=== PATIENT | male | born 1970 | race Caucasian/White ===

== ENCOUNTER 2024-08-20 08:34 | Outpatient (AMB) | payer OTHER, SELFPAY ==
--- NOTE | 2024-08-20 08:36 | MHC.PC.OV ---
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 Intake Note: patient here for new patient visit c/o possible hernia Controls Designer Required: No Allergies No Known Allergies Allergy (Verified 08/20/24 08:55) Medication List - Last Reviewed 08/20/24 by Fernanda Mccarthy MA tamsulosin (Flomax) 0.4 mg PO DAILY Tobacco use date assessed: 08/20/24 Dental Screening Dental Screen Date: 08/20/24 Did you have a dental visit in the last 12 months?: Yes Did you have a dental problem in the last 6 months where you did not have access to dental care?: No Was dental information given to patient?: Patient has dentist HPI HPI Comments History of Present Illness Details 54-year-old male [facility]. Prior PCP? - Dr. Tootie Ny, [facility] Last office visit/CPE/labs - 02/2024 Acute issue(s) - BPH: He is on tamsulosin 0.4 mg daily. He was followed by [facility] until he was advised 2 years ago that follow up was no longer necessary. - He notes that he has been noticing a small painless bulge around his umbilicus with coughing, sneezing, and having a bowel movement for the past 6 months. He thinks he may have umbilical hernia. Past Medical History - Hyperlipidemia, acid reflux, arthritis multiple joints, BPH, sinusitis Surgical History - Right and left total knee replacement, arthroscopy of left knee, left hip replacement Family History - Dad: Hyperlipidemia Social History - Nonsmoker. Does not vape. Drinks 4-5 beers/win 2-3 days weekly. Denies recreational drug use - Has been making healthy dietary choices. Exercises routinely. Generally sleep well Health maintenance - Last eye exam was 02/2024 at [facility] in [facility]. He will sign a release for his PCP to obtain his ophthalmology record - Last dental visit was 6 weeks ago - Unsure of last tetanus vaccine but notes within the last 10 years - Has not been vaccinated for the flu this season; declines vaccination - He notes that he is up-to-date on the shingles vaccines - He has not been vaccinated for pneumonia; advised to get vaccinated from the local pharmacy - Last colonoscopy was 2-3 years ago at [facility]: normal. Will request and review his colonoscopy record [facility] Medical History (Updated 08/20/24 @ 09:15 by Gaurav Mendez CNP) Prostate troubles Acid reflux Arthritis High cholesterol Sinusitis Surgical History (Updated 08/20/24 @ 08:51 by Fernanda Mccarthy MA) History of hip replacement History of total right knee replacement (TKR) History of total left knee replacement (TKR) History of arthroscopy of left knee Family History (Updated 08/20/24 @ 08:54 by Fernanda Mccarthy MA) Father High cholesterol Brother High cholesterol Social History Housing: House Patient Tobacco Use Status: Never used Tobacco e-Cigarette/Vaping Use: Never Used Second Hand Smoke Exposure: No service: No Current occupational status: employed 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 1. Little interest or pleasure in doing things: not at all 2. Feeling down, depressed, or hopeless: not at all 3. Trouble falling or staying asleep, or sleeping too much: not at all 4. Feeling tired or having little energy: not at all 5. Poor appetite or overeating: not at all 6. Feeling bad about yourself - or that you are a failure or have let yourself or your family down: not at all 7. Trouble concentrating on things, such as reading the newspaper or watching television: not at all 8. Moving or speaking so slowly that other people could have noticed. Or the opposite - being so fidgety or restless that you have been moving around a lot more than usual: not at all 9. Thoughts that you would be better off or of hurting yourself in some way: not at all Total score: 0 Depression Screening Interpretation: Negative Depression Screening Done: Yes 96563 - PHQ-9 Billing: Yes Source: Developed by Drs. Be Valenzuela, Lela Garvin, Marino Flores and colleagues, with an educational myra from [employer]. Thrive Questionnaire Date Thrive assessed: 08/20/24 I am a: Patient What is your living situation today?: I have a steady place to live Within the past 12 months, did the food you bought not last and you didn't have the money to get more?: Never true Within the past 12 months, did you worry whether your food would run out before you got money to buy more?: Never true Do you have trouble paying for medicines?: No Do you have trouble getting transportation to medical appointments?: No Do you have trouble paying your heating and electricity bill?: No Do you have trouble taking care of your child, family member or friend?: No Do you have trouble with day-to-day activities such as bathing, preparing meals, shopping, managing finances, etc.?: No Are you currently unemployed and looking for a job?: No Are you interested in more education?: Yes Please select the resources that you would like help with: None Currently or been in a relationship where the following occur: No concerns reported THRIVE Score: 0 AUDIT C Alcohol Use Questionnaire (AUDIT-C) 1. How often do you have a drink containing alcohol?: 2-3 times a week 2. How many drinks containing alcohol do you have on a typical day when you are drinking?: 1 or 2 3. How often do you have six or more drinks on one occasion?: Never Total Score: 3 Score Reviewed/Action Taken: Yes BILLIE-7 AMB Questionnaire BILLIE-7 Date BILLIE - 7 assessed: 08/20/24 Feeling nervous, anxious, or on edge: 0 = Not at all Not being able to stop or control worryin = Not at all Worrying too much about different things: 0 = Not at all Trouble relaxin = Not at all Being so restless that it is hard to sit still: 0 = Not at all Becoming easily annoyed or irritable: 0 = Not at all Feeling afraid as if something awful might happen: 0 = Not at all Total BILLIE-7 score (0-4 normal; 5-9 mild; 10-14 moderate; 15-21 severe): 0 Source: Developed by Drs. Be Valenzuela, Lela Garvin, Marino Flores and colleagues, with an educational myra from [employer]. BILLIE-7 Assessment Billing BILLIE-7 Assessment Tool: BILLIE-7 Assessment 48874 Review of Systems Const Details: Denies chills, Denies fatigue, Denies fever(s), Denies headache(s) and Denies weakness HEENT Denies change in vision, Denies dizziness, Denies headache(s), Denies hearing loss, Denies nasal congestion, Denies sinus pain, Denies sinus pressure and Denies sore throat Card Denies chest pain, Denies lightheadedness, Denies dyspnea and Denies other (palpitations) Resp Denies cough, Denies dyspnea and Denies wheezing GI Denies abdominal pain, Denies melena, Denies hematochezia, Denies change in bowel habits, Denies dyspepsia and Denies nausea Denies hematuria and Denies dysuria Musc Denies abnormal gait, Denies myalgias, Denies arthralgias, Denies numbness and Denies tingling Skin/Breast Denies rash, Denies unusual bruising and Denies wounds Neuro Denies abnormal gait, Denies dizziness, Denies headache(s), Denies memory loss, Denies numbness, Denies Sensory deficit (Neuro), Denies tingling and Denies weakness Psych Denies anxiety, Denies depression and Denies memory loss Endo Denies cold intolerance, Denies fatigue, Denies heat intolerance, Denies polydipsia and Denies polyuria Joe/Lymph Denies easy bleeding and Denies easy bruising Aller/Immun Denies wheezing Physical exam (Primary Care) Vital Signs: Last Vital Signs Temp 97.6 F 08/20/24 08:43 Pulse 68 08/20/24 08:43 Resp 16 08/20/24 08:43 BP 122/73 08/20/24 08:43 Pulse Ox 97 08/20/24 08:43 Oxygen Delivery Method Room Air 08/20/24 08:43 BMI result Body Mass Index 27.8 Tobacco/Smoking Status: Tobacco use Status Tobacco use date assessed 08/20/24 08/20/24 08:48 Patient Tobacco Use Status Never used Tobacco 08/20/24 08:48 e-Cigarette/Vaping Use Never Used 08/20/24 08:48 PHQ-9: PHQ-9 Score PHQ-9: Total score 0 08/20/24 08:58 Depression Screening Interpretation: Negative Thrive Assessment: Date of Thrive Assessment Date Thrive assessed 08/20/24 08/20/24 08:40 Currently or been in a relationship where the following occur: No concerns reported Const Other: General: no acute distress, well developed, alert and awake Nutritional Appearance: well nourished Orientation/consciousness: patient oriented x3 [facility] Head: Yes normocephalic and Yes atraumatic Ears: hearing grossly normal bilaterally and TM's normal bilaterally General nose exam: Normal external nose present and Normal nares present Mouth: Normal oral and palatal mucosa present and moist mucous membranes Teeth and gingiva: dentition normal Throat: Yes oropharynx normal Eyes Pupils: Equal, round and reactive pupils present and Pupil accommodation reflex normal EOM: EOMs intact bilaterally Neck Neck: Yes normal visual inspection, Yes no lymphadenopathy and Yes trachea midline Thyroid: Thyroid normal Carotids: no bruits Lymphatic: no lymphadenopathy noted Chest Chest palpation & inspection: normal inspection of the chest Resp Effort & Inspection: normal respiratory effort Auscultation: clear to auscultation bilaterally Cardio Rate: regular rate Rhythm: regular rhythm Heart sounds: S1 normal heart sound present, S2 normal heart sound present, no gallops, no murmurs and no rubs Bruits: no abdominal aortic bruits and no carotid bruits GI Palpation (GI): No Abdominal aortic bruit present, Soft to palpation, nontender, No hepatosplenomegaly present and No Rebound tenderness present Auscultation: normal bowel sounds General: Yes no CVA tenderness Back/Spine/Pelvis Back: no CVA tenderness Cervical Spine: cervical ROM normal and No Cervical spine tenderness Thoracic/Lumbar Spine: thoraco-lumbar ROM normal, No pain with thoraco-lumbar ROM, No thoracic spinal tenderness and No lumbar spinal tenderness Skin General: warm and dry. Normal skin color. Normal skin turgor Lesions: no lesions Rashes: no rashes Trauma: no lacerations or abrasions Wounds: no wounds Nails: normal Neuro General: patient oriented x3, gait normal and CN's II-XI intact bilaterally Cranial nerves: Yes Equal, round and reactive pupils present Cognition (Neuro): normal cognition Gait exam (Neuro): Normal gait present Motor exam (neuro): 5/5 motor strength present throughout Sensory Exam: No Sensory deficit (Neuro) Deep tendon reflexes (DTR's): Right patellar reflex intensity grade: 2+ and Left patellar reflex intensity grade: 2+ Extrem General: Yes normal to inspection, No edema and No calf tenderness Psych Appearance: grossly normal Affect: normal affect Attitude: cooperative Thought process: Normal thought process present Coding Level of Care Code New Pt Level 4 (92742) Diagnoses Abdominal wall bulge R19.00 BPH (benign prostatic hyperplasia) N40.0 High cholesterol E78.00 Vaccine counseling Z71.85 Laboratory tests ordered as part of a complete physical exam (CPE) Z00.00 Additional Codes BILLIE-7 Assessment Billing - BILLIE-7 Assessment Tool: BILLIE-7 Assessment 39514 ([id number]) PHQ-9 - 67683 - PHQ-9 Billing: Yes ([id number]) Assessment & Plan Assessment & Plan (1) Abdominal wall bulge: Code(s): R19.00 - Intra-abdominal and pelvic swelling, mass and lump, unspecified site Category: Medical Plan: He has been noticing a small painless bulge around his umbilicus with coughing, sneezing, and having a bowel movement for the past 6 months. He thinks he may have umbilical hernia. Abdomen is soft, nontender, nondistended, active bowel sounds x4. No umbilical bulge or tenderness. Will order ultrasound to rule out umbilical hernia. Follow-up as needed. Verbalized understanding and agreed with the plan. (2) BPH (benign prostatic hyperplasia): Code(s): N40.0 - Benign prostatic hyperplasia without lower urinary tract symptoms Category: Medical Plan: No acute symptoms. He is on tamsulosin 0.4 mg daily. Follow-up as needed. Verbalized understanding and agreed with plan. (3) High cholesterol: Code(s): E78.00 - Pure hypercholesterolemia, unspecified Category: Medical Plan: He is not on medication for hyperlipidemia. Advised to limit foods high in saturated fat and avoid foods high in trans fat. Routine exercise encouraged. Will check lipid panel and make changes as needed. (4) Vaccine counseling: Code(s): Z71.85 - Encounter for immunization safety counseling Category: Medical Plan: He has not been vaccinated for pneumonia. Advised to get vaccinated for pneumonia from the local pharmacy. Verbalized understanding and agreed with treatment plan. (5) Laboratory tests ordered as part of a complete physical exam (CPE): Code(s): Z00.00 - Encounter for general adult medical examination without abnormal findings Category: Medical Plan: Fasting labs ordered as part of a complete physical exam. Advised to fast for at least 10 hours before getting labs drawn. May drink water Verbalized understanding and agreed with treatment plan. Orders: Orders Complete Blood Count Auto Diff Today Z00.00 - Encounter for general adult medical examination without abnormal findings Lipid Panel Today Z00.00 - Encounter for general adult medical examination without abnormal findings Microalbumin, Random (w Creat) Today Z00.00 - Encounter for general adult medical examination without abnormal findings Vitamin D 25-OH Total Today Z00.00 - Encounter for general adult medical examination without abnormal findings Comprehensive [place]. Panel Fast Today Z00.00 - Encounter for general adult medical examination without abnormal findings PSA, Ultra Sensitive Today Z00.00 - Encounter for general adult medical examination without abnormal findings TSH reflex Free T4 Today Z00.00 - Encounter for general adult medical examination without abnormal findings UA CC w/rflx Micro + Cult Today Z00.00 - Encounter for general adult medical examination without abnormal findings US abdomen limited Today R19.00 - Intra-abdominal and pelvic swelling, mass and lump, unspecified site
[2024-08-20 08:43] VITALS: BP 122/73; PULSE 68; RESP 16; TEMP 36.4; O2SAT 97; BMI 27.8
== END 2024-08-20 10:16 | disposition home or self-care (01) ==
LOC: HO.HMCFM 08:35
PROVIDERS: PCP Nurse Practitioner Family; Visit Provider Nurse Practitioner Family
DX: R19.00 Intra-abdominal and pelvic swelling, mass and lump, unspecified site (principal); N40.0 Benign prostatic hyperplasia without lower urinary tract symptoms; E78.00 Pure hypercholesterolemia, unspecified; Z71.85 Encounter for immunization safety counseling; Z00.00 Encounter for general adult medical examination without abnormal findings

== ENCOUNTER → 2024-08-20 08:34 | Outpatient (BNVA) | payer OTHER, SELFPAY | PROVIDERS: PCP Nurse Practitioner Family; Visit Provider Nurse Practitioner Family | DX: R19.00 Intra-abdominal and pelvic swelling, mass and lump, unspecified site (principal); N40.0 Benign prostatic hyperplasia without lower urinary tract symptoms; E78.00 Pure hypercholesterolemia, unspecified; Z79.899 Other long term (current) drug therapy; Z71.85 Encounter for immunization safety counseling | CPT/HCPCS: 96127 ==

== ENCOUNTER 2024-08-28 07:31 | Outpatient (REF) | payer OTHER, SELFPAY ==
[2024-08-28 11:08] LABS: Appearance Urine Clear; Color Urine Yellow; Glucose Urine UA Negative (Negative); Leukocyte Esterase Urine Negative (Negative); Nitrite Urine Negative (Negative); Urine Blood Negative (Negative); Urine Ketones Negative (Negative); Urine Protein Negative (Neg-Trace)
[2024-08-28 11:12] LABS: MANUAL DIFF FLAG NO
[2024-08-28 11:30] LABS: Basophils Percent Auto 0.6 % (0-2); Eosinophils Absolute Auto 0.1 X10*3/uL (0.0-0.4); Eosinophils Percent Auto 2.1 % (0-4); Hematocrit 48.4 % (42.0-52.0); Hemoglobin 16.3 g/dl (14.0-18.0); Imm Gran Abs Auto 0.02 X10*3/uL (0.00-0.03); Imm Gran Pct Auto 0.3 % (0.0-0.4); Lymphocytes Absolute Auto 1.8 X10*3/uL (1.2-4.9); Lymphocytes Percent Auto 26.9 % (20-40); Mean Corpuscular HGB Conc 33.7 g/dl (31.0-36.0); Mean Corpuscular Hemoglobin 28.9 pg (27.0-33.0); Mean Corpuscular Volume 85.8 fL (80.0-98.0); Mean Platelet Volume 10.2 fL (9.4-12.4); Monocytes Absolute Auto 0.7 X10*3/uL (0.1-1.2); Monocytes Percent Auto 9.8 % (2-11); Neutrophils Percent Auto 60.3 % (45-73); Platelet Count 308 X10*3/uL (160-400); Red Blood Count 5.64 X10*6/uL (4.60-5.80); Red Cell Distribution Width 13.5 % (11.0-16.0); White Blood Count 6.7 X10*3/uL (4.8-10.8)
[2024-08-28 11:54] LABS: Creatinine Urine 54.59 mg/dL; Microalbum/Creatinine Ratio Ur 31.1 ug/mg cr (<30)
[2024-08-28 12:37] LABS: Alanine Aminotransferase 53 U/L (0-40); Albumin Level 4.6 g/dL (3.5-5.0); Alkaline Phosphatase 116 U/L (39-117); Anion Gap 14 (12-20); Aspartate Amino Transferase 31 U/L (5-37); Bilirubin Total 0.7 mg/dL (0.0-1.0); Blood Urea Nitrogen 20 mg/dL (9-16); Calcium 9.6 mg/dL (8.4-10.2); Carbon Dioxide 28 mmol/L (22-29); Chloride 105 mmol/L (96-108); Cholesterol 202 mg/dL (<200); Estimated Glomerular Filt Rate > 60; Glucose Fasting 90 mg/dL (60-99); HDL Cholesterol 47 mg/dL (>40); LDL Cholesterol Calculated 132 mg/dL (<100); Potassium 4.5 mmol/L (3.3-5.1); Sodium 142 mmol/L (135-145); Total Protein 7.6 g/dL (6.5-8.0); Triglycerides 117 mg/dL (<150)
[2024-08-28 13:05] LABS: TSH reflex Free T4 1.85 uIU/mL (0.32-4.0); Vitamin D 25-OH Total 51.1 ng/mL (>30)
[2024-09-04 00:48] LABS: PSA, Ultra Sensitive 3.08 ng/mL
== END 2024-08-28 07:32 | disposition home or self-care (01) ==
LOC: HO.WFDLDS 07:31
PROVIDERS: Visit Provider Nurse Practitioner Family
DX: Z00.00 Encounter for general adult medical examination without abnormal findings (principal); Z12.5 Encounter for screening for malignant neoplasm of prostate
CPT/HCPCS: 36415; 80053; 80061; 81003; 82043; 82306; 82570; 84153; 84443; 85025

== ENCOUNTER 2024-09-01 14:32 | Outpatient (AMB) | payer OTHER, SELFPAY ==
--- NOTE | 2024-09-01 13:41 | A.OFFPC_ITS ---
Intake Visit Reasons: Telehealth 2-3 wks labs review Intake Note: Nikolas presents for a telehealth appointment to go over his latest lab results. Try Out Person Required: No Allergies No Known Allergies Allergy (Verified 09/01/24 14:15) Tobacco use date assessed: 09/01/24 Dental Screening Dental Screen Date: 09/01/24 Did you have a dental visit in the last 12 months?: Yes Did you have a dental problem in the last 6 months where you did not have access to dental care?: No Was dental information given to patient?: Patient has dentist HPI HPI Comments History of Present Illness Details 54-year-old male presents for telehealth visit for review of recent lab results. He offers no complaints and denies acute symptoms at this time. [facility] Medical History (Updated 09/01/24 @ 15:13 by Gaurav Mendez CNP) Prostate troubles Acid reflux Arthritis High cholesterol Sinusitis Surgical History (Updated 08/20/24 @ 08:51 by Fernanda Mccarthy MA) History of hip replacement History of total right knee replacement (TKR) History of total left knee replacement (TKR) History of arthroscopy of left knee Family History Father High cholesterol Brother High cholesterol Social History (Updated 09/01/24 @ 14:16 by Carly Ram MA) Housing: House Alcohol intake: current Patient Tobacco Use Status: Never used Tobacco e-Cigarette/Vaping Use: Never Used Second Hand Smoke Exposure: No service: No Current occupational status: employed 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 1. Little interest or pleasure in doing things: not at all 2. Feeling down, depressed, or hopeless: not at all 3. Trouble falling or staying asleep, or sleeping too much: not at all 4. Feeling tired or having little energy: not at all 5. Poor appetite or overeating: not at all 6. Feeling bad about yourself - or that you are a failure or have let yourself or your family down: not at all 7. Trouble concentrating on things, such as reading the newspaper or watching television: not at all 8. Moving or speaking so slowly that other people could have noticed. Or the opposite - being so fidgety or restless that you have been moving around a lot more than usual: not at all 9. Thoughts that you would be better off or of hurting yourself in some way: not at all Total score: 0 Depression Screening Interpretation: Negative Depression Screening Done: Yes 09894 - PHQ-9 Billing: Patient declined-do not bill Source: Developed by Drs. Be Valenzuela, Lela Garvin, Marino Flores and colleagues, with an educational ymra from [employer]. Thrive Questionnaire Date Thrive assessed: 09/01/24 I am a: Patient What is your living situation today?: I have a steady place to live Within the past 12 months, did the food you bought not last and you didn't have the money to get more?: Never true Within the past 12 months, did you worry whether your food would run out before you got money to buy more?: Never true Do you have trouble paying for medicines?: No Do you have trouble getting transportation to medical appointments?: No Do you have trouble paying your heating and electricity bill?: No Do you have trouble taking care of your child, family member or friend?: No Do you have trouble with day-to-day activities such as bathing, preparing meals, shopping, managing finances, etc.?: No Are you currently unemployed and looking for a job?: No Are you interested in more education?: Yes Please select the resources that you would like help with: None Currently or been in a relationship where the following occur: No concerns reported THRIVE Score: 0 AUDIT C Alcohol Use Questionnaire (AUDIT-C) 1. How often do you have a drink containing alcohol?: 4 or more times a week 2. How many drinks containing alcohol do you have on a typical day when you are drinking?: 1 or 2 3. How often do you have six or more drinks on one occasion?: Never Total Score: 4 Score Reviewed/Action Taken: No BILLIE-7 AMB Questionnaire BILLIE-7 Date BILLIE - 7 assessed: 09/01/24 Feeling nervous, anxious, or on edge: 0 = Not at all Not being able to stop or control worryin = Not at all Worrying too much about different things: 0 = Not at all Trouble relaxin = Not at all Being so restless that it is hard to sit still: 0 = Not at all Becoming easily annoyed or irritable: 0 = Not at all Feeling afraid as if something awful might happen: 0 = Not at all Total BILLIE-7 score (0-4 normal; 5-9 mild; 10-14 moderate; 15-21 severe): 0 Source: Developed by Drs. Be Valenzuela, Lela Garvin, Marino Flores and colleagues, with an educational myra from [employer]. BILLIE-7 Assessment Billing BILLIE-7 Assessment Tool: BILLIE-7 Assessment 63701 Review of Systems Const Details: Denies chills, Denies fatigue, Denies fever(s), Denies headache(s) and Denies weakness Cardiac Denies chest pain, Denies claudication, Denies leg edema, Denies lightheadedness, Denies palpitations, Denies dyspnea, Denies dyspnea on exertion, Denies orthopnea and Denies other (Loss of consciousness) Resp Denies cough, Denies excessive phlegm production, Denies dyspnea, Denies dyspnea on exertion, Denies snoring and Denies wheezing Physical exam (Primary Care) Tobacco/Smoking Status: Tobacco use Status Tobacco use date assessed 09/01/24 09/01/24 14:20 Patient Tobacco Use Status Never used Tobacco 09/01/24 14:16 e-Cigarette/Vaping Use Never Used 09/01/24 14:16 PHQ-9: PHQ-9 Score PHQ-9: Total score 0 09/01/24 14:21 Depression Screening Interpretation: Negative Thrive Assessment: Date of Thrive Assessment Date Thrive assessed 09/01/24 09/01/24 14:20 Currently or been in a relationship where the following occur: No concerns reported Const Other: Patient is alert and oriented x3. Telehealth Telehealth Telehealth Platform: Telephone Location of provider rendering services: practice address Location of patient: address on file Patient Identification confirmed using: Name, : Yes Telehealth method: voice only Patient verbally consented to treatment: Yes Patient verbally consented to billing insurance company: Yes Patient informed of any privacy concerns related to visit: Yes Coding Level of Care Code Tele New Pt Level 3 (02605) Diagnoses Hypercholesterolemia E78.00 Elevated ALT measurement R74.01 Microalbuminuria R80.9 Additional Codes BILLIE-7 Assessment Billing - BILLIE-7 Assessment Tool: BILLIE-7 Assessment 34764 ([id number]) Time Spent (min) 15 Assessment & Plan Assessment & Plan (1) Hypercholesterolemia: Code(s): E78.00 - Pure hypercholesterolemia, unspecified Category: Medical Plan: Recent total cholesterol and LDL levels are slightly elevated, 202 and 132 respectively. Advised to limit foods high in saturated fat and avoid foods high in trans fat. Routine exercise encouraged. Fast for 10-12 hours, may drink water, and perform lipid panel blood work 2-3 days before next visit. Follow-up for telehealth visit in 2 months. Return sooner with symptoms or concerns. Verbalized understanding and agreed with treatment plan. (2) Elevated ALT measurement: Code(s): R74.01 - Elevation of levels of liver transaminase levels Category: Medical Plan: Recent ALT level is slightly elevated, 53. Healthy diet, including low fat encouraged. Will recheck liver panel in 2 months. Verbalized understanding and agreed with the plan. (3) Microalbuminuria: Code(s): R80.9 - Proteinuria, unspecified Category: Medical Plan: Recent urine microalbumin/creatinine ratio is slightly elevated, 31.1. Likely dehydration. Adequate hydration encouraged. Will recheck urine microalbumin/creatinine ratio in 2 months. Verbalized understanding and agreed with the plan. Orders: Orders Lipid Panel 2 Months E78.00 - Pure hypercholesterolemia, unspecified Liver Panel 2 Months R74.01 - Elevation of levels of liver transaminase levels Microalbumin, Random (w Creat) 2 Months R80.9 - Proteinuria, unspecified
== END 2024-09-01 15:24 | disposition home or self-care (01) ==
LOC: HO.HMCFM 14:32
PROVIDERS: PCP Internal Medicine; Visit Provider Nurse Practitioner Family
DX: E78.00 Pure hypercholesterolemia, unspecified (principal); R74.01 Elevation of levels of liver transaminase levels; R80.9 Proteinuria, unspecified

== ENCOUNTER → 2024-09-01 14:32 | Outpatient (BNVA) | payer OTHER, SELFPAY | PROVIDERS: PCP Internal Medicine; Visit Provider Nurse Practitioner Family | DX: E78.00 Pure hypercholesterolemia, unspecified (principal); R74.01 Elevation of levels of liver transaminase levels; R80.9 Proteinuria, unspecified | CPT/HCPCS: 96127 ==

== ENCOUNTER 2024-09-14 15:06 | Outpatient (REF) | payer OTHER, SELFPAY | END 2024-09-14 15:07 | disposition home or self-care (01) | LOC: HO.US 15:06 | PROVIDERS: PCP Internal Medicine; Visit Provider Nurse Practitioner Family | DX: R19.00 Intra-abdominal and pelvic swelling, mass and lump, unspecified site (principal) | CPT/HCPCS: 76857 ==

== ENCOUNTER → 2024-09-14 15:07 | Outpatient (BNV) | payer OTHER, SELFPAY | PROVIDERS: PCP Internal Medicine; Visit Provider Radiology Diagnostic Radiology | DX: K43.9 Ventral hernia without obstruction or gangrene (principal) | CPT/HCPCS: 76857 ==

== ENCOUNTER 2025-02-25 07:59 | Outpatient (REF) | payer OTHER, SELFPAY ==
--- OUTSIDE RECORDS SUMMARY | 2025-02-25 08:04 | XMS_ITS | Clinical Summary ---
Author Organization [facility] Address [address] [place] [address] Phone Care Team Providers Care Pool Hall Inspector Name Role Phone Tootie Herzog MD Primary Care Provider [phone] Allergies No known active allergies Medications therapeutic multivitamin tablet Take 1 tablet by mouth daily. Active glucosamine 500 mg Cap Take 500 mg by mouth daily. Active fexofenadine (KOBY ALLERGY) 60 MG tablet Take 1 tablet by mouth daily as needed. 2 Active omeprazole (PRILOSEC) 20 MG capsule Take 20 mg by mouth daily. Active acetaminophen (TYLENOL) 325 mg tablet Take 2 tablets (650 mg total) by mouth every 6 (six) hours as needed for pain (specific location in comments). 150 tablet 3 Active aspirin 81 mg chewable tablet Take 1 tablet (81 mg total) by mouth 2 (two) times a day. 60 tablet 3 Active senna (SENOKOT) 8.6 mg tablet Take 1 tablet by mouth 2 (two) times a day as needed for constipation. 30 tablet 3 Active Active Problems Problem Noted Date Diagnosed Date S/P total left hip arthroplasty 12/11/2022 S/P TKR (total knee replacement) using cement, l eft 01/22/2019 Status post total left knee replacement 11/06/19 17 Primary localized osteoarthritis of left knee Social History Tobacco Use Types Packs/Day Years Used Date Smoking Tobacco: Never Smokeless Tobacco: Never Tobacco Cessation:Counseling Given: Not Answered Alcohol Use Standard Drinks/Week Comments Yes 4 (1 standard drink = 0.6 oz pur e alcohol) Education Answer Date Recorded Are you interested in more education? Not on mar e 09/21/2022 Are you concerned about learning? Not on file 09/21/2022 No 09/21/2022 No 09/21/2022 Digital Access Answer Date Recorded No 10/17/2022 No 10/17/2022 Reliable internet access at home? Not on file 10/17/2022 Device with a working camera? Not on file Intimate Partner Violence Answer Date R ecorded Are you denied basic needs s uch as food, clothing, or medical care? No 12/11/2022 In the past 12 months have y ou been in a relationship with a person who hurts, threatens, or tries to control you? No 12/11/2022 Are you denied basic needs s uch as food, clothing, or medical care? No 12/11/2022 In the past 12 months have y ou been in a relationship with a person who hurts, threatens, or tries to control you? No 12/11/2022 Sex and Gender Information Value Date Recorded Sex Assigned at Male 11/28/2022 12:02 PM EDT Legal Sex Male 10:19 AM EDT Gender Identity Male 11/28/2022 11:59 AM EDT Sexual Orientation Straight 11/28/2022 12 :02 PM EDT Last Filed Vital Signs Vital Sign Reading Time Taken Comments Blood Pressure 139/75 12/11/2022 5:13 PM EDT Pulse 96 12/11/2022 5:13 PM EDT Temperature 36.7 C (98 F) 12/11/2022 5:13 PM EDT Respiratory Rate 18 12/11/2022 5:13 PM EDT Oxygen Saturation 96% 12/11/2022 5:13 PM EDT Inhaled Oxygen Concentration - - Weight 74.8 kg (165 lb) 12/11/2022 8:02 AM EDT Height 167.6 cm (5' 6 ) 12/11/2022 8:02 AM EDT Body Mass Index 26.63 12/11/2022 8:02 AM EDT Plan of Treatment Health Maintenance Due Date Last Done Comments LIPID PANEL 1970 DEPRESSION SCREENING 1982 HEPATITIS C SCREENING 1988 HIV ONE-TIME SCREENING (18-6 5 YEARS) 1988 COLOGUARD 08/05/2015 COLONOSCOPY 08/05/2015 COLORECTAL CANCER SCREENING 08/05/2015 FIT TEST 08/05/2015 FOBT 08/05/2015 SIGMOIDOSCOPY 08/05/2015 VIRTUAL COLONOSCOPY 08/05/2015 PNEUMOCOCCAL VACCINES (50+ years) (1 of 1 - PCV) 2020 ZOSTER VACCINES (1 of 2) 2020 Adult Td,Tdap Booster 06/08/2023 06/08/2013 , 09/26/2005 INFLUENZA VACCINE (#1) 2024 COVID-19 VACCINE (2 - 2024-2 6 season) 2025 08/27/2020 SCREENING FOR DIABETES 11/16/2025 , 11/16/2022 SMOKING STATUS SCREENING (On ce After 26 Yrs) Completed 12/11/2022 HEPATITIS A VACCINES Aged Out No long er eligible based on patient's age to complete this topic HIB VACCINES Aged Out No longer eligi ble based on patient's age to complete this topic MENINGOCOCCAL VACCINES (ACWY) Aged Out No longer eligible based on patient's age to complete this topic MENINGOCOCCAL VACCINES (B) Aged Out N o longer eligible based on patient's age to complete this topic Medical Devices Implanted Type Area Rn Iv Therapy Device Identifier Shelf Expiration Date Model / Serial / Lot Knee Implant Component Size 5 Femoral Persona [place] Cement Cruciate Retaining Standard Right - [id number] Implanted:Qty: 1 on 01/22/2019 by Shelly Walsh MD, PhD at [facility] NODATA Right: Knee MANA / DIV OF [employer] 10/25/2027 [id number] / / [id number] Hip Stem [id number] Size 5 127deg Femoral Accolade Titanium Hydroxyapatite Coating - [id number] Implanted:Qty: 1 on 12/11/2022 by Shelly Walsh MD, PhD at [facility] STANDARD Left: Hip [employer] 11/09/2027 [id number] / / [id number] Hip 36mm 5.0 Implant Hd Alumina Ceramic Modular Delta Biolox Minus 05 - [id number] Implanted:Qty: 1 on 12/11/2022 by Shelly Walsh MD, PhD at [facility] STANDARD Left: Hip [employer] 09/06/2027 [id number] / / [id number] Implant Femoral Persona Cr Cmt Ccr Cla Sz 6 L Knee 02 - [id number] Implanted:Qty: 1 on 11/05/2016 by Shelly Walsh MD, PhD at [facility] Left: Knee MANA / DIV OF [employer] 07/24/2025 [id number] / / [id number] Implant Tibial Persona Cmt Stm 5 Deg Sz E L Knee 03a Knee 03a - [id number] Implanted:Qty: 1 on 11/05/2016 by Shelly Walsh MD, PhD at [facility] Left: Knee MANA / DIV OF [employer] 10/24/2026 [id number] / / [id number] Patella All Poly 29mm Veronica Knee 06 Knee 06 - [id number] Implanted:Qty: 1 on 11/05/2016 by Shelly Walsh MD, PhD at [facility] Left: Knee MANA / DIV OF [employer] 04/25/2024 [id number] / / [id number] Implant Insert Persona Asf Cr 10mm Ply L 3-11 Ef Knee 05 Knee 05 - [id number] Implanted:Qty: 1 on 11/05/2016 by Shelly Walsh MD, PhD at [facility] Left: Knee MANA / DIV OF [employer] 10/25/2023 [id number] / / [id number] Cement Bone 40gr [place] R Radiopaque Bx/1bo/1ea - Discontinued Per Vendor - [id number] Implanted:Qty: 2 on 01/22/2019 by Shelly Walsh MD, PhD at [facility] Right: Knee MANA / DIV OF [employer] [id number] / / Knee Patella 29mm Veronica Persona All Polyethylene Cemented Conventional - [id number] Implanted:Qty: 1 on 01/22/2019 by Shelly Walsh MD, PhD at [facility] Right: Knee MANA / DIV OF [employer] 11/23/2026 [id number] / / [id number] Knee Insert 10mm Component Surface Persona Polyethylene Cruciate Retaining Fixed Conventional Right - [id number] Implanted:Qty: 1 on 01/22/2019 by Shelly Walsh MD, PhD at [facility] Right: Knee MANA / DIV OF [employer] 11/23/2026 [id number] / / [id number] Knee Implant 5deg Component Tibial Persona Titanium Stemmed Cemented Rt Size E - [id number] Implanted:Qty: 1 on 01/22/2019 by Shelly Walsh MD, PhD at [facility] Right: Knee MANA / DIV OF [employer] 08/24/2028 [id number] / / [id number] Screw Bone 6.5x25mm Low Profile - [id number] Implanted:Qty: 1 on 12/11/2022 by Shelly Walsh MD, PhD at [facility] Left: Hip [employer] 09/11/2027 [id number] / / [id number] Screw Bone 6.5x30mm Low Profile - [id number] Implanted:Qty: 1 on 12/11/2022 by Shelly Walsh MD, PhD at [facility] Left: Hip [employer] 09/09/2027 [id number] / / [id number] Hip Acetabular 52e Shell Trident Ii Tritanium 3d Surface Clusterhole - [id number] Implanted:Qty: 1 on 12/11/2022 by Shelly Walsh MD, PhD at [facility] Left: Hip [employer] 11/09/2027 [id number] / / [id number] Acetabular Insert 5.9x36mm 0deg Trident X3 Polyethylene - [id number] Implanted:Qty: 1 on 12/11/2022 by Shelly Walsh MD, PhD at [facility] Left: Hip [employer] 10/26/2027 [id number] / / [id number] Insurance [facility] CHOICE [facility] CHOICE [facility] Advance Directives For more information, please contact: [phone] (9AM - 5PM [place], Saturday-Saturday) * Full Code (Presumed) (Latest Code Status on File) Date Activated Date Inactivated Comments 01/22/2019 1:19 PM 01/22/2019 9:32 PM * Full Code (Presumed) Date Activated Date Inactivated Comments 11/05/2016 1:41 PM 11/06/2016 4:34 PM Care Teams Pool Hall Inspector Relationship Specialty Start Date End Date Tootie Herzog MD PCP - General Internal Medicine 11/16/22 Additional Source Comments The information contained in this document represents components of the legal health record. It is not the complete legal health record.[facility]
--- OUTSIDE RECORDS SUMMARY | 2025-02-25 08:04 | XMS_ITS | Encounter Summary ---
Author Organization [facility] Address [address] [place] [address] Phone Care Team Providers Care Uniform Force Captain Name Role Phone Alyson Guadarrama MD Primary Care Provide r Tootie Herzog MD Primary Care Provider Encounter Details Date Type Department Care Team (Late st Contact Info) Description 11/05/2016 Procedure Pass [facility] PERIOPERATIVE DEPT [address] [place] [id number] Social History Tobacco Use Types Packs/Day Years Used Date Smoking Tobacco: Never Smokeless Tobacco: Never Alcohol Use Standard Drinks/Week Comments Yes 3 (1 standard drink = 0.6 oz pur e alcohol) Sex and Gender Information Value Date Recorded Sex Assigned at Male 11/28/2022 12:02 PM EDT Legal Sex Male 10:19 AM EDT Gender Identity Male 11/28/2022 11:59 AM EDT Sexual Orientation Straight 11/28/2022 12 :02 PM EDT documented as of this encounter Functional Status * Patient is deaf or has serious difficulty with hearing Answer Date of Assessment Author No 11/05/2016 12:06 PM EDT Kelin Palmer FNP * Patient is blind or has serious difficulty with seeing, even when wearing glasses Answer Date of Assessment Author No 11/05/2016 12:06 PM EDT Kelin Palmer FNP * Patient has serious difficulty walking or climbing stairs (5yr old or older) Answer Date of Assessment Author No 11/05/2016 12:06 PM Kelin Stinson FNP * Patient has serious difficulty dressing or bathing (5yr old or older) Answer Date of Assessment Author No 11/05/2016 12:06 PM Kelin Stinson FNP * Patient has serious difficulty doing errands alone such as visiting a doctor???s office or shopping, due to physical, mental, or emotional condition (15 years old or older) Answer Date of Assessment Author No 11/05/2016 12:06 PM Kelin Stinson FNP documented as of this encounter Mental Status * Patient has serious difficulty concentrating, remembering, or making decisions due to physical, mental, or emotional condition Answer Entry Date Author No 11/05/2016 12:06 PM Kelin Stinson FNP documented in this encounter Plan of Treatment Not on file documented as of this encounter Visit Diagnoses Not on filedocumented in this encounter Care Teams Uniform Force Captain Relationship Specialty Start Date End Date Alyson Guadarrama MD [address] [place] [address] PCP - General Internal Medicine 02/26/18 11/15/22 Tootie Herzog MD [address] [place] [address] PCP - General Internal Medicine 11/16/22 documented as of this encounter Additional Source Comments The information contained in this document represents components of the legal health record. It is not the complete legal health record.[facility]
--- OUTSIDE RECORDS SUMMARY | 2025-02-25 08:04 | XMS_ITS | Encounter Summary ---
Author Organization [facility] Address [address] [place] [address] Phone Care Team Providers Care Svp Name Role Phone Alyson Guadarrama MD Primary Care Provide r Tootie Herzog MD Primary Care Provider Encounter Details Date Type Department Care Team (Late st Contact Info) Description 11/13/2022 Telephone [facility] [place] of [place], Arthroplasty Service [address] [facility], 3rd Floor, [address] [place] [address] Shelly Walsh MD, PhD [address] [facility] [address] [place] [address] [email or web address] Social History Tobacco Use Types Packs/Day Years [...] with a working camera? Not on file Sex and Gender Information Value Date Recorded [...] 12:06 PM Kelin Stinson FNP * Patient is blind or has serious difficulty with seeing, even when wearing glasses Answer Date of Assessment Author No 11/05/2016 12:06 PM Kelin Stinson FNP * Patient has serious difficulty walking [...] on filedocumented in this encounter Care Teams Svp Relationship Specialty Start Date End Date Alyson Guadarrama MD [address] [place] [address] PCP - General Internal Medicine 02/26/18 11/15/22 Tootie Herzog MD [address] [place] [address] PCP - General Internal Medicine 11/16/22 documented as of this encounter Additional Source Comments The information contained in this document represents components of the legal health record. It is not the complete legal health record.[facility]
--- OUTSIDE RECORDS SUMMARY | 2025-02-25 08:04 | XMS_ITS | Encounter Summary ---
Author Organization [facility] Address [address] [place] [address] Phone Care Team Providers Care Field Ironworker Name Role Phone Alyson Guadarrama MD Primary Care Provide r Tootie Herzog MD Primary Care Provider [phone] Encounter Details Date Type Department Care Team (Late st Contact Info) Description 01/22/2019 Procedure Pass [facility] PERIOPER[facility]IVE DEPT [address] [place] [id number] Social History Tobacco Use Types Packs/Day Years [...] on filedocumented in this encounter Care Teams Field Ironworker Relationship Specialty Start Date End Date Alyson Guadarrama MD [address] [place] [address] PCP - General Internal Medicine 02/26/18 11/15/22 Tootie Herzog MD [address] [place] [address] PCP - General Internal Medicine 11/16/22 documented as of this encounter Additional Source Comments The information contained in this document represents components of the legal health record. It is not the complete legal health record.[facility]
--- OUTSIDE RECORDS SUMMARY | 2025-02-25 08:04 | XMS_ITS | Encounter Summary ---
Author Organization [facility] Address [address] [place] [address] Phone Care Team Providers Care Bin Filler Name Role Phone Tootie Herzog MD Primary Care Provider [phone] Encounter Details Date Type Department Care Team (Late st Contact Info) Description 12/12/2022 Telephone [facility] [place] Department of Orthopaedic Surgery, Arthroplasty Service [address] [facility], 3rd Floor, [address] [place] [address] Shelly Walsh MD, PhD [address] [facility] [address] [place] [address] [email or web address] Social History Tobacco Use Types Packs/Day Years Used Date Smoking Tobacco: Never Smokeless Tobacco: Never Alcohol Use Standard Drinks/Week Comments Yes 4 [...] on filedocumented in this encounter Care Teams Bin Filler Relationship Specialty Start Date End Date Tootie Herzog MD PCP - General Internal Medicine 11/16/22 documented as of this encounter Additional Source Comments The information contained in this document represents components of the legal health record. It is not the complete legal health record.[facility]
--- OUTSIDE RECORDS SUMMARY | 2025-02-25 08:04 | XMS_ITS | Encounter Summary ---
Author Organization [facility] Address [address] [place] [address] Phone Care Team Providers Care Clothespin Drier Operator Name Role Phone Tootie Herzog MD Primary Care Provider [phone] Encounter Details Date Type Department Care Team ([facility] Contact Info) Description 12/11/2022 Procedure Pass [facility] [place]PT [address] [place] [id number] Social History Tobacco Use Types Packs/Day Years [...] on filedocumented in this encounter Care Teams Clothespin Drier Operator Relationship Specialty Start Date End Date Tootie Herzog MD PCP - General Internal Medicine 11/16/22 documented as of this encounter Additional Source Comments The information contained in this document represents components of the legal health record. It is not the complete legal health record.[facility]
[2025-02-25 12:29] LABS: Microalbum/Creatinine Ratio Ur 27.8 ug/mg cr (<30)
[2025-02-25 12:37] LABS: Alanine Aminotransferase 57 U/L (0-40); Albumin Level 4.7 g/dL (3.5-5.0); Alkaline Phosphatase 93 U/L (39-117); Aspartate Amino Transferase 42 U/L (5-37); Cholesterol 214 mg/dL (<200); HDL Cholesterol 44 mg/dL (>40); Total Protein 7.5 g/dL (6.5-8.0); Triglycerides 179 mg/dL (<150)
== END 2025-02-25 08:00 | disposition home or self-care (01) ==
LOC: HO.WFDLDS 07:59
PROVIDERS: Visit Provider Nurse Practitioner Family
DX: R74.01 Elevation of levels of liver transaminase levels (principal); R80.9 Proteinuria, unspecified; E78.00 Pure hypercholesterolemia, unspecified
CPT/HCPCS: 36415; 80061; 80076; 82043; 82570